=== PATIENT | male | born 1965 | race Caucasian/White ===

== ENCOUNTER → 2018-07-28 | Outpatient (CLI) | payer OTHER ==
--- NOTE | 2018-07-28 13:36 | 2DMMODE ---
[facility] [place] [place] [address] 2 D/M-MODE ECHOCARDIOGRAM Name: RAYMUNDOERIN CARRILLO Room #: REG CL Romain#: [id number] ������������� Admission: 07/28/18 ������������� Attend Phys: Thierno Hayden, Discharge: ��� ������������� ��� Date of : 63 Date of Service: 07/28/18 1335 �� Report #: [id number] �������� ��������������������������������������������[id number] THIS REPORT FOR: //name// APPROVED REPORT Study performed: 07/28/2018 12:43:33 EXAM: Comprehensive 2D, Doppler, and color-flow Echocardiogram Patient Location: Out-Patient Room #: Echo lab 2 Status: routine BSA: 2.01 HR: 74 bpm BP: 138/86 mmHg Rhythm: NSR Other Information Study Quality: Good Indications Arrhythmia 2D Dimensions RVDd: 36.39 mm IVSd: 10.79 (7-11mm) LVOT Diam: 25.15 (18-24mm) LVDd: 65.18 mm PWd: 9.95 (7-11mm) Ascending Ao: 29.77 (22-36mm) LVDs: 57.32 (25-40mm) Aortic Root: 36.39 mm IVC: 19.00 mm Volumes Left Atrial Volume (Systole) Single Plane 4CH: 48.80 mL Single Plane 2CH: 42.41 mL LA ESV Index: 25.00 mL/m2 Aortic Valve AoV Peak Klever.: 1.18 m/s AO Peak Gr.: 5.57 mmHg LVOT Max P.92 mmHg LVOT Max V: 0.85 m/s PERICO Vmax: 3.59 cm2 Mitral Valve E/A Ratio: 0.5 MV Decel. Time: 305.25 ms MV E Max Klever.: 0.46 m/s [facility] [address] [place] [address] 2 D/M-MODE ECHOCARDIOGRAM Name: ERIN FONSECA Room #: REG [facility].#: [id number] ������������� Admission: 07/28/18 ������������� Attend Phys: Thierno Hayden, Discharge: ��� ������������� ��� Date of : 63 Date of Service: 07/28/18 1335 �� Report #: [id number] �������� ��������������������������������������������[id number] MV A Klever.: 0.87 m/s MV PHT: 88.52 ms IVRT: 159.17 ms Pulmonary Valve PV Peak Klever.: 0.81 m/s PV Peak Gr.: 2.65 mmHg Pulmonary Vein P Vein S: 0.53 m/s P Vein A: 0.30 m/s P Vein D: 0.42 m/s P Vein A Dur.: 83.0 msec P Vein S/D Ratio: 1.26 Left Ventricle Left ventricle is mildly dilated. There is global hypokinesis of the left ventricle. There is normal left ventricular wall thickness. Left ventricular ejection fraction is moderate to severely decreased. LVEF is 25-30%. Grade I - abnormal relaxation pattern. Right Ventricle The right ventricle is normal size. The right ventricular systolic function is normal. Atria The left atrium size is normal. The right atrium size is normal. Aortic Valve The aortic valve is normal in structure. No aortic regurgitation is present. There is no aortic valvular stenosis. Mitral Valve The mitral valve is normal in structure. Mild mitral regurgitation. No evidence of mitral valve stenosis. Tricuspid Valve The tricuspid valve is normal in structure. There is no tricuspid valve regurgitation noted. Pulmonic Valve The pulmonary valve is normal in structure. There is no pulmonic valvular regurgitation. Great Vessels The aortic root is normal in size. IVC is normal in size and collapses >50% with inspiration. [facility] [address] [place] [address] 2 D/M-MODE ECHOCARDIOGRAM Name: ERIN FONSECA Room #: REG CL [facility] [id number] ������������� Admission: 07/28/18 ������������� Attend Phys: Thierno Hayden, Discharge: ��� ������������� ��� Date of : 63 Date of Service: 07/28/18 1335 �� Report #: [id number] �������� ��������������������������������������������[id number] Pericardium There is no pericardial effusion. <Conclusion> Left ventricle is mildly dilated. There is normal left ventricular wall thickness. Left ventricular ejection fraction is moderate to severely decreased. LVEF is 25-30%. Grade I - abnormal relaxation pattern. There is global hypokinesis of the left ventricle. Mild mitral regurgitation. ��������������������������������������������� <ELECTRONICALLY SIGNED> ���������������������������������������� By: Thierno Hayden MD, FAC ��������������������������������������������� 07/28/18 1335 1335 1335 Thierno Hayden MD, [facility]
== END ==
LOC: NUC 07:56
DX: I34.0 Nonrheumatic mitral (valve) insufficiency (principal); I49.3 Ventricular premature depolarization; E78.5 Hyperlipidemia, unspecified; Z87.891 Personal history of nicotine dependence